=== PATIENT | male | born 1955 | race Caucasian/White ===

== ENCOUNTER 2019-02-26 04:31 | Inpatient (IN) | payer MEDICAID ==
[~2019-02-26] VITALS: Ht 177.8 cm; Wt 84.5 kg
[2019-02-26] MEDS ORDERED: APIX5TAB3 PO (05:23)
[2019-02-26 06:04] LABS: ALANINE AMINOTRANSFERASE 46 U/L (12-78); ALBUMIN 3.5 G/DL (3.4-5.0); ALBUMIN/GLOBULIN RATIO 1.2 (1.1-1.5); ALKALINE PHOSPHATASE 76 IU/L (46-116); ANION GAP 8 (8-16); ASPARTATE AMINO TRANSFERASE 33 U/L (10-37); BILIRUBIN,TOTAL 1.1 MG/DL (0.1-1.0); BLOOD UREA NITROGEN 20 MG/DL (7-18); BUN/CREATININE RATIO 15.6 (5.4-32.0); CALCIUM 8.6 MG/DL (8.5-10.1); CHLORIDE 108 MMOL/L (99-107); CREATININE 1.28 MG/DL (0.60-1.10); GLUCOSE 106 MG/DL (70-104); POTASSIUM 3.7 MMOL/L (3.5-5.1); SODIUM 139 MMOL/L (135-145); TOTAL PROTEIN 6.4 G/DL (6.4-8.2); eGFR 57 ML/MIN
[2019-02-26 06:12] LABS: MAGNESIUM 2.2 MG/DL (1.5-2.4)
[2019-02-26 06:48] LABS: BASOPHILS # (AUTO) 0.1 X10'3 (0-0.2); BASOPHILS % (AUTO) 0.8 % (0-1); EOSINOPHILS # (AUTO) 0.2 X10'3 (0-0.9); EOSINOPHILS % (AUTO) 2.1 % (0-6); HEMATOCRIT 43.7 % (42.0-52.0); LYMPHOCYTES # (AUTO) 1.5 X10'3 (1.1-4.8); LYMPHOCYTES % (AUTO) 15.1 % (21-51); MEAN CORPUSCULAR HGB CONC 34.3 g/dL (33.0-36.5); MEAN CORPUSCULAR VOLUME 90.4 FL (78-98); MEAN PLATELET VOLUME 8.9 FL (7.4-10.4); MONOCYTES # (AUTO) 0.7 X10'3 (0-0.9); NEUTROPHILS # (AUTO) 7.3 X10'3 (1.8-7.7); PLATELET COUNT 315 X10'3 (140-440); RED BLOOD COUNT 4.83 X10'6 (4.70-6.10); RED CELL DISTRIBUTION WIDTH 14.6 % (11.5-14.5); WHITE BLOOD COUNT 9.8 X10'3 (4.5-11.0)
[2019-02-26] MEDS ORDERED: potassium CL 10mEq/100ml bag 100 ML IV PRN (08:10)
[2019-02-26] MEDS ORDERED: sodium chloride 0.45% 1,000 ML IV SCH (08:10)
[2019-02-26] MEDS ORDERED: acetaminophen 325mg tablet PO PRN (08:10)
[2019-02-26] MEDS ORDERED: magnesium 4gm in 100ml NS 100 ML IV PRN (08:10)
[2019-02-26] MEDS ORDERED: mag hydrox/Alum hydrox/simeth 30ml oral suspension PO PRN (08:10)
[2019-02-26] MEDS ORDERED: magnesium Cl slow-release 64mg tablet PO PRN (08:10)
[2019-02-26] MEDS ORDERED: magnesium 2GM in 50ml NS 50 ML IV PRN (08:10)
[2019-02-26] MEDS ORDERED: bisacodyl 10mg suppository rectal RC PRN (08:10)
[2019-02-26] MEDS ORDERED: potassium Cl 40MEQ/NS 500ml 500 ML IV PRN (08:10)
[2019-02-26] MEDS ORDERED: potassium Cl 20 mEq SR tablet PO PRN ×2 (08:10)
[2019-02-26] MEDS ORDERED: morphine 2 MG/ML inj. syringe IV PRN ×2 (08:10)
[2019-02-26] MEDS ORDERED: ondansetron/PF 4mg/2ml inj IV PRN (08:10)
[2019-02-26] MEDS ORDERED: magnesium hydroxide 30ml (MOM) UD suspension PO PRN (08:10)
[2019-02-26] MEDS ORDERED: nitroGLYCERIN 0.4mg SUBLingual tab SL PRN (08:20)
[2019-02-26] MEDS: metoprolol tartrate 12.5mg (1/2 tablet) PO SCH ×2 (08:20→20:30)
[2019-02-26] MEDS ORDERED: Potassium Cl inj 20 MEQ in normal saline 1000ml 990 ML IV SCH (08:20)
[2019-02-26] MEDS: aspirin 81mg tablet.DR PO SCH (08:42)
[2019-02-26] MEDS: potassium Cl 20mEq in NS 1,000 ML IV SCH ×2 (08:52→21:33)
[2019-02-26] MEDS: enoxaparin 80mg/0.8ml syringe SUBCUT SCH ×2 (12:27→20:32)
--- NOTE | 2019-02-26 15:04 | NUR ---
REPORT ATTEMPTED, JOAQUÍN/NURSE IN PROCEDURE WILL RETURN CALL
--- NOTE | 2019-02-26 15:28 | NUR ---
I have received report from Katrin Bernstein RN and had the opportunity to ask questions and assume patient care.
--- NOTE | 2019-02-26 16:00 | NUR ---
Patient arrived to the unit, placed on tele monitoring, vital signs obtained, 2 RN skin check complete, belongings placed at the bedside. Will continue to monitor.
--- NOTE | 2019-02-26 18:30 | NUR ---
Patient in room PCU 3023b. I have received report from ANNEMARIE Fischer and had the opportunity to ask questions and assume patient care. Patient awake for bedside report. Was on telephone and stable at this time. 20 G left AC with 20 mEq K infusing at 80 mL/hr per provider order. Will continue to monitor closely.
--- NOTE | 2019-02-26 18:32 | NUR ---
Problems reprioritized. Patient report given, questions answered & plan of care reviewed with Freeman SHARPE.
[2019-02-26 19:00] VITALS: BP 113/72
[2019-02-26] MEDS: docusate sod 100mg capsule PO SCH (20:31)
[2019-02-26 23:00] VITALS: BP 100/68
[2019-02-27] VITALS (10 sets, daily range): BP systolic 105–123; BP diastolic 74–86
--- NOTE | 2019-02-27 06:27 | NUR ---
Problems reprioritized. Patient report given, questions answered & plan of care reviewed with ANNEMARIE PELAEZ AND ANNEMARIE CHAVEZ.
[2019-02-27 06:43] LABS: ALANINE AMINOTRANSFERASE 29 U/L (12-78); ALBUMIN 3.2 G/DL (3.4-5.0); ALBUMIN/GLOBULIN RATIO 1.1 (1.1-1.5); ALKALINE PHOSPHATASE 73 IU/L (46-116); ANION GAP 5 (8-16); ASPARTATE AMINO TRANSFERASE 19 U/L (10-37); BILIRUBIN,TOTAL 0.5 MG/DL (0.1-1.0); BLOOD UREA NITROGEN 13 MG/DL (7-18); BUN/CREATININE RATIO 13.7 (5.4-32.0); CALCIUM 8.4 MG/DL (8.5-10.1); CHLORIDE 111 MMOL/L (99-107); CHOL/HDL RATIO 3.9 (0.00-4.99); CHOLESTEROL 167 MG/DL (0-200); CREATININE 0.95 MG/DL (0.60-1.10); GLUCOSE 97 MG/DL (70-104); HDL CHOLESTEROL 43 MG/DL (35-60); LDL CHOLESTEROL 111 MG/DL (50-100); MAGNESIUM 2.2 MG/DL (1.5-2.4); POTASSIUM 3.8 MMOL/L (3.5-5.1); SODIUM 140 MMOL/L (135-145); TOTAL CARBON DIOXIDE 23.6 MMOL/L (24-32); TOTAL PROTEIN 6.1 G/DL (6.4-8.2); TRIGLYCERIDES 66 MG/DL (20-135); eGFR 80 ML/MIN
[2019-02-27 06:45] LABS: BASOPHILS # (AUTO) 0.1 X10'3 (0-0.2); BASOPHILS % (AUTO) 1.7 % (0-1); EOSINOPHILS # (AUTO) 0.3 X10'3 (0-0.9); EOSINOPHILS % (AUTO) 4.2 % (0-6); HEMATOCRIT 42.5 % (42.0-52.0); HEMOGLOBIN 14.7 g/dl (14.0-17.9); LYMPHOCYTES # (AUTO) 1.4 X10'3 (1.1-4.8); MEAN CORPUSCULAR HEMOGLOBIN 31.3 PG (27.0-31.0); MEAN CORPUSCULAR HGB CONC 34.5 g/dL (33.0-36.5); MEAN CORPUSCULAR VOLUME 90.9 FL (78-98); MEAN PLATELET VOLUME 8.7 FL (7.4-10.4); MONOCYTES # (AUTO) 0.5 X10'3 (0-0.9); MONOCYTES % (AUTO) 8.8 % (2-12); NEUTROPHILS % (AUTO) 63.3 % (42-75); PLATELET COUNT 270 X10'3 (140-440); RED BLOOD COUNT 4.67 X10'6 (4.70-6.10); RED CELL DISTRIBUTION WIDTH 15.1 % (11.5-14.5); WHITE BLOOD COUNT 6.2 X10'3 (4.5-11.0)
--- NOTE | 2019-02-27 06:59 | NUR ---
Patient in room PCU 3023. I have received report from Freeman SHARPE and had the opportunity to ask questions and assume patient care.
[2019-02-27] MEDS: metoprolol tartrate 12.5mg (1/2 tablet) PO SCH (07:01)
[2019-02-27] MEDS: enoxaparin 80mg/0.8ml syringe SUBCUT SCH (07:02)
[2019-02-27] MEDS ORDERED: K and/or MAG REPLACEMENT MC SCH (08:00)
[2019-02-27] MEDS: aspirin 81mg tablet.DR PO SCH (08:02)
[2019-02-27] MEDS: docusate sod 100mg capsule PO SCH (08:02)
[2019-02-27] MEDS ORDERED: nitroGLYCERIN 0.4mg SUBLingual tab SL PRN (09:15)
[2019-02-27] MEDS ORDERED: metoprolol tartrate 1mg/ml inj IV PRN (09:15)
[2019-02-27] MEDS ORDERED: regadenoson 0.4mg/5ml syringe IV PRN (09:15)
[2019-02-27] MEDS ORDERED: aminophylline 250mg/10ml inj. IV PRN (09:15)
[2019-02-27] MEDS: potassium Cl 20mEq in NS 1,000 ML IV SCH (10:50)
[2019-02-27] MEDS ORDERED: regadenoson 0.4mg/5ml syringe IV ONE (13:07)
[2019-02-27] MEDS ORDERED: aminophylline inj. 10 ML IV ONE (13:07)
--- NOTE | 2019-02-27 14:47 | NUR ---
Sent page to Dr. Good: PAGER ID: [phone] MESSAGE: [id number] Jose Roberto Mendoza: Karma results are up. Thanks, Aaliyah [phone]
[2019-02-27] MEDS ORDERED: NITR0.4T51 SL (15:20)
[2019-02-27] MEDS ORDERED: ASPI-1071 PO (15:20)
[2019-02-27] MEDS ORDERED: METO25TA6 PO (15:20)
[2019-02-27] MEDS ORDERED: ATOR20TA66 PO (15:24)
--- NOTE | 2019-02-27 16:34 | NUR ---
Patient discharge instructions given. All questions answered. Tele box removed. IV removed cannula intact. All patients belongings were gathered and taken with patient. Patient was accompanied by family to private vehicle.
--- NOTE | 2019-02-27 18:10 | NUR ---
[place] documentation: I have reviewed and agree with all interventions, assessments performed and documented by Penny SHARPE. [place] Medication Administration: For this medication-pass time frame, all medication were reviewed, dispensed, administered and documented per hospital policy by Penny SHARPE.
== END 2019-02-27 16:47 | disposition home or self-care (01) | DRG 190 ==
LOC: ER 04:31 → PCU 3S 14:57 → EDBEDREQ 15:03
PROVIDERS: ADMIT Internal Medicine; ATTEND Internal Medicine
PROC: 4A02XM4 Measurement of Cardiac Total Activity, External Approach (ICD-10-PCS; principal; 2019-02-27)
PROC: 3E033HZ Introduction of Radioactive Substance into Peripheral Vein, Percutaneous Approach (ICD-10-PCS; 2019-02-27)
DX: I21.A1 Myocardial infarction type 2 (principal); I48.0 Paroxysmal atrial fibrillation; Z79.82 Long term (current) use of aspirin; Z86.718 Personal history of other venous thrombosis and embolism; Z87.891 Personal history of nicotine dependence; Z88.8 Allergy status to other drugs, medicaments and biological substances; Z79.01 Long term (current) use of anticoagulants
CPT/HCPCS: 36415; 71045; 78452; 80053; 80061; 83735; 83880; 84484; 85025; 85730; 87070; 93005; 93017; 93306; 99285; A9500; G0378; J0280; J1650; J3480; J7030

== ENCOUNTER 2019-12-27 11:24 | Day surgery (SDC) | payer MEDICAID ==
[~2019-12-27] VITALS: Ht 188 cm; Wt 76.7 kg
[2019-12-27] VITALS (13 sets, daily range): BP systolic 103–119; BP diastolic 65–78
[~2019-12-27 11:24] MED LIST: APIX5TAB3 PO; ASPI-1071 PO; ATOR20TA66 PO; METO25TA6 PO; NITR0.4T51 SL
[2019-12-27] MEDS ORDERED: METO25TA6 PO (11:44)
[2019-12-27] MEDS ORDERED: NITR0.4T51 SL (11:44)
[2019-12-27] MEDS ORDERED: nitroGLYCERIN 0.4mg SUBLingual tab SL PRN (11:50)
[2019-12-27] MEDS ORDERED: LORazepam 0.5 MG tablet PO PRN (11:50)
[2019-12-27] MEDS ORDERED: diphenhydrAMINE 25mg capsule PO PRN (11:50)
[2019-12-27] MEDS ORDERED: normal saline 1,000 ML IV SCH (11:50)
[2019-12-27 12:17] LABS: BASOPHILS # (AUTO) 0.1 X10'3 (0-0.2); BASOPHILS % (AUTO) 0.9 % (0-1); EOSINOPHILS # (AUTO) 0.1 X10'3 (0-0.9); EOSINOPHILS % (AUTO) 1.1 % (0-6); HEMATOCRIT 46.3 % (42.0-52.0); HEMOGLOBIN 15.5 g/dl (14.0-17.9); LYMPHOCYTES # (AUTO) 1.1 X10'3 (1.1-4.8); MEAN CORPUSCULAR HEMOGLOBIN 30.8 PG (27.0-31.0); MEAN CORPUSCULAR HGB CONC 33.4 g/dL (33.0-36.5); MEAN CORPUSCULAR VOLUME 92.3 FL (78-98); MEAN PLATELET VOLUME 8.7 FL (7.4-10.4); MONOCYTES # (AUTO) 0.6 X10'3 (0-0.9); MONOCYTES % (AUTO) 7.2 % (2-12); NEUTROPHILS # (AUTO) 6.3 X10'3 (1.8-7.7); NEUTROPHILS % (AUTO) 77.8 % (42-75); PLATELET COUNT 308 X10'3 (140-440); RED BLOOD COUNT 5.01 X10'6 (4.70-6.10); RED CELL DISTRIBUTION WIDTH 15.1 % (11.5-14.5); WHITE BLOOD COUNT 8.1 X10'3 (4.5-11.0)
[2019-12-27 12:26] LABS: ALBUMIN 3.8 G/DL (3.4-5.0); ANION GAP 9 (8-16); BLOOD UREA NITROGEN 23 MG/DL (7-18); BUN/CREATININE RATIO 23.5 (5.4-32.0); CALCIUM 9.7 MG/DL (8.5-10.1); CHLORIDE 106 MMOL/L (99-107); CREATININE 0.98 MG/DL (0.60-1.10); GLUCOSE 104 MG/DL (70-104); SODIUM 139 MMOL/L (135-145); TOTAL CARBON DIOXIDE 24.2 MMOL/L (24-32); eGFR 77 ML/MIN
[2019-12-27 12:28] LABS: POTASSIUM 4.4 MMOL/L (3.5-5.1)
[2019-12-27 12:30] LABS: PARTIAL THROMBOPLASTIN TIME 26 SECONDS (22-32)
[2019-12-27] MEDS ORDERED: iohexol 350 MG/ML 50ML vial IV ONE (13:45)
[2019-12-27] MEDS ORDERED: fentaNYL/PF 50MCG/1 ML 2ML syringe ONE (13:45)
[2019-12-27] MEDS ORDERED: iohexol 350MG/ML 100ml bottle IV ONE (13:45)
[2019-12-27] MEDS ORDERED: LIDOcaine 1% (10mg/ml)w/preservative injection 20ml MDV ONE (13:45)
[2019-12-27] MEDS ORDERED: midazolam 2 mg/2 ml injection ONE (13:45)
[2019-12-27] MEDS ORDERED: ondansetron/PF 4mg/2ml inj IV PRN (15:30)
[2019-12-27] MEDS ORDERED: HYDROcodone/acetaminophen 5mg/325mg tablet PO PRN (15:30)
[2019-12-27] MEDS ORDERED: OXAZEpam 15mg capsule PO PRN (15:30)
[2019-12-27] MEDS ORDERED: HYDROcodone/acetaminophen 10/325mg tab PO PRN (15:30)
[2019-12-27] MEDS ORDERED: proCHLORperazine 10 MG/2 ml inj IV PRN (15:30)
== END 2019-12-27 20:05 | disposition home or self-care (01) ==
LOC: U 11:24 → MED 3N 11:24 → U 20:05
PROVIDERS: ATTEND Internal Medicine Cardiovascular Disease
DX: R94.39 Abnormal result of other cardiovascular function study (principal); Z98.890 Other specified postprocedural states; Z86.718 Personal history of other venous thrombosis and embolism; Z87.891 Personal history of nicotine dependence; Z79.01 Long term (current) use of anticoagulants; Z86.711 Personal history of pulmonary embolism
CPT/HCPCS: 36415; 71046; 80048; 85025; 85610; 85730; 93458; 99152; C1769; J1644; J2001; J2250; J3010; J7030; Q0163; Q9967; 93005; A4620; A6258; C1760

== ENCOUNTER 2020-02-02 05:18 | Inpatient (IN) | payer MEDICAID ==
[2020-01-25 11:11] LABS: BASOPHILS # (AUTO) 0.1 X10'3 (0-0.2); BASOPHILS % (AUTO) 0.8 % (0-1); EOSINOPHILS # (AUTO) 0.1 X10'3 (0-0.9); EOSINOPHILS % (AUTO) 1.1 % (0-6); LYMPHOCYTES % (AUTO) 12.5 % (21-51); MEAN CORPUSCULAR HEMOGLOBIN 31.1 PG (27.0-31.0); MEAN CORPUSCULAR HGB CONC 33.3 g/dL (33.0-36.5); MEAN CORPUSCULAR VOLUME 93.3 FL (78-98); MEAN PLATELET VOLUME 8.3 FL (7.4-10.4); MONOCYTES # (AUTO) 0.5 X10'3 (0-0.9); MONOCYTES % (AUTO) 6.5 % (2-12); NEUTROPHILS # (AUTO) 6.5 X10'3 (1.8-7.7); NEUTROPHILS % (AUTO) 79.1 % (42-75); PRE OP HEMOGLOBIN 16.3 g/dL (14.0-17.9); PRE OP PLATELET COUNT 321 X10'3 (140-440); RED BLOOD COUNT 5.25 X10'6 (4.70-6.10); RED CELL DISTRIBUTION WIDTH 14.8 % (11.5-14.5)
[2020-01-25 11:24] LABS: ALBUMIN/GLOBULIN RATIO 1.2 (1.1-1.5); ALKALINE PHOSPHATASE 103 IU/L (46-116); BLOOD UREA NITROGEN 18 MG/DL (7-18); CALCIUM 9.8 MG/DL (8.5-10.1); CHLORIDE 106 MMOL/L (99-107); CREATININE 1.06 MG/DL (0.60-1.10); PRE OP ALT 45 U/L (30-65); PRE OP ANION GAP 6 (8-16); PRE OP AST 25 U/L (10-37); PRE OP BILIRUB, TOTAL 0.6 MG/DL (0.0-1.0); PRE OP GLUCOSE 103 MG/DL (70-104); PRE OP POTASSIUM 4.2 MMOL/L (3.4-5.1); PRE OP PROTIME 10.3 SECONDS (9.0-12.0); PRE OP SODIUM 141 MMOL/L (135-145); TOTAL CARBON DIOXIDE 28.9 MMOL/L (24-32); TOTAL PROTEIN 7.3 G/DL (6.4-8.2); eGFR 71 ML/MIN
[~2020-02-02] VITALS: Ht 177.8 cm; Wt 77.1 kg
[2020-02-02] VITALS (26 sets, daily range): BP systolic 108–160; BP diastolic 57–100
[~2020-02-02 05:18] MED LIST changes: -ASPI-1071 PO; -ATOR20TA66 PO; +METO-395 PO; -METO25TA6 PO; +ringers solution, lacted 1,000 ML IV SCH
[2020-02-02] MEDS ORDERED: ceFAZolin 2gm in dextrose, iso 50 ML IV ONE (05:30)
[2020-02-02] MEDS ORDERED: DOCUMENT DATE & TIME OF BETA-BLOCKER PO ONE (05:30)
[2020-02-02] MEDS ORDERED: famotidine 20mg tablet PO ONE (05:30)
[2020-02-02] MEDS ORDERED: sevoflurane 250ml liquid IH ONE (07:25)
[2020-02-02] MEDS ORDERED: rocuronium 10mg/ml inj IV ONE ×2 (07:25→07:29)
[2020-02-02] MEDS ORDERED: midazolam 2 mg/2 ml injection ONE (07:26)
[2020-02-02] MEDS ORDERED: fentaNYL /PF 50mcg/ml 5ml ampule ONE (07:27)
[2020-02-02] MEDS ORDERED: propofol inj 20 ML IV ONE (07:29)
[2020-02-02] MEDS ORDERED: glycopyrrolate 0.2mg/ml inj ONE (07:29)
[2020-02-02] MEDS ORDERED: neostigmine methylsulfate 1 MG/ML 10ml vial ONE (07:29)
[2020-02-02] MEDS ORDERED: LIDOcaine 2% (20mg/ml) 5ml vial ONE (07:29)
[2020-02-02] MEDS ORDERED: dexamethasone sod phosphate 4mg/ml inj. ONE (07:29)
[2020-02-02] MEDS ORDERED: ondansetron/PF 4mg/2ml inj ONE (07:29)
[2020-02-02] MEDS ORDERED: ringers solution, lacted 1,000 ML IV SCH (08:58)
[2020-02-02] MEDS ORDERED: ondansetron/PF 4mg/2ml inj IV PRN (09:00)
[2020-02-02] MEDS ORDERED: proCHLORperazine 10 MG/2 ml inj IV PRN (09:00)
[2020-02-02] MEDS ORDERED: meperidine/PF 25mg/ml syringe IV PRN ×2 (09:00)
[2020-02-02] MEDS ORDERED: morphine 2 MG/ML inj. syringe IV PRN (09:00)
[2020-02-02] MEDS ORDERED: meperidine/PF 25mg/ml syringe ONE (10:23)
--- NOTE | 2020-02-02 10:48 | NUR ---
Received from OR via surgical bed, accompanied by Anesthesiologist Jose Carlos and report given by Anesthesiolgist. O2 mask placed to 10L sats 97%, all other VS stable, patient moving around a lot, pain meds given. 18G left forearm intact IVF LR at 100cc/hr, clarified rate with MD as one kideny removed, MD states okay. Dentures at bedside. Mckenna cath with 1000cc clear yellow urine. Abdomen with small island dressing and lap sites with bandaids all CDI. SCDs placed on patient.
[2020-02-02] MEDS: meperidine/PF 25mg/ml syringe IV PRN ×2 (11:02→11:07)
[2020-02-02] MEDS: morphine 4 MG/ML inj SYRINge IV PRN ×3 (11:12→11:43)
[2020-02-02] MEDS ORDERED: naloxone 0.4 mg/ml inj IV PRN (11:20)
[2020-02-02] MEDS: potassium cl 20mEq in 1/2 NS 1,000 ML IV SCH ×2 (11:20→18:40)
[2020-02-02] MEDS ORDERED: CADD PCA waste documentation MC PRN (11:20)
[2020-02-02] MEDS ORDERED: morphine 4 MG/ML inj SYRINge ONE (11:40)
[2020-02-02] MEDS ORDERED: HYDROmorphone inj. 0.5 MG/0.5 ML DISP.SYRIN IV PRN ×2 (11:50→11:55)
[2020-02-02] MEDS ORDERED: HYDROmorphone 1 mg/ml syringe ONE (11:53)
[2020-02-02] MEDS: acetaminophen 1,000mg/100ml IV 100 ML IV SCH ×2 (12:17→14:48)
--- NOTE | 2020-02-02 12:20 | NUR ---
Report received from SUPERVISOR PAPER MACHINEAna.
[2020-02-02] MEDS ORDERED: nitroGLYCERIN 0.4mg SUBLingual tab SL PRN (12:25)
[2020-02-02] MEDS: HYDROmorphone/NS 1 mg/ml CADD 50 ML IV SCH ×6 (12:48→23:30)
--- NOTE | 2020-02-02 13:00 | NUR ---
Received call from radiologist earlier about the pneumo and this was relayed to anesthesia and surgeon. No changes in orders as I also relayed absolutely no respiratory symptoms have transpired. Also earlier I spoke with Dr Branch and Dr Cruz about significant pain after maxing out all recovery room orders (see eMAR) and I received further orders for dilaudid pushes and 1gm tylenol. Pt did finally start to have relief in pain and this continued as dilaudid cadd was hung. MDs both aware of patient status and Dr Cruz states keep NPO until further notice.
--- NOTE | 2020-02-02 13:18 | NUR ---
Report called to receiving nurse. Transferred via surgical bed. Belongings sent with patient. Special Issues communicated to receiving nurse Christie RN and charge nurse. Dressing changed at bedside with charge nurse present and all info relayed regarding pain, and small pneumothorax. Pt VS stable, chart at bedside and dentures sent with patient. Dr Cruz stated please keep patient NPO until after he checks on him later today, pt understands and staff aware.
--- NOTE | 2020-02-02 18:40 | NUR ---
Problems reprioritized. Patient report given, questions answered & plan of care reviewed with ANNEMARIE Maldonado & Darling RN.
--- NOTE | 2020-02-02 18:43 | NUR ---
Patient in room ED[facility] 358. I have received report from Christie SHARPE and had the opportunity to ask questions and assume patient care.
[2020-02-03] MEDS: HYDROmorphone/NS 1 mg/ml CADD 50 ML IV SCH ×12 (01:00→22:36)
[2020-02-03] MEDS: potassium cl 20mEq in 1/2 NS 1,000 ML IV SCH ×3 (02:32→18:54)
[2020-02-03 05:06] LABS: BASOPHILS % (AUTO) 0.3 % (0-1); EOSINOPHILS % (AUTO) 0.2 % (0-6); HEMATOCRIT 43.2 % (42.0-52.0); HEMOGLOBIN 14.3 g/dl (14.0-17.9); LYMPHOCYTES # (AUTO) 0.8 X10'3 (1.1-4.8); LYMPHOCYTES % (AUTO) 6.1 % (21-51); MEAN CORPUSCULAR HEMOGLOBIN 30.7 PG (27.0-31.0); MEAN CORPUSCULAR VOLUME 92.8 FL (78-98); MEAN PLATELET VOLUME 8.3 FL (7.4-10.4); MONOCYTES # (AUTO) 1.1 X10'3 (0-0.9); MONOCYTES % (AUTO) 8.5 % (2-12); NEUTROPHILS # (AUTO) 10.7 X10'3 (1.8-7.7); NEUTROPHILS % (AUTO) 84.9 % (42-75); PLATELET COUNT 232 X10'3 (140-440); RED BLOOD COUNT 4.66 X10'6 (4.70-6.10); RED CELL DISTRIBUTION WIDTH 14.7 % (11.5-14.5); WHITE BLOOD COUNT 12.7 X10'3 (4.5-11.0)
[2020-02-03 05:18] LABS: ALBUMIN 3.3 G/DL (3.4-5.0); ANION GAP 8 (8-16); BLOOD UREA NITROGEN 16 MG/DL (7-18); BUN/CREATININE RATIO 10.2 (5.4-32.0); CALCIUM 8.4 MG/DL (8.5-10.1); CHLORIDE 105 MMOL/L (99-107); CREATININE 1.57 MG/DL (0.60-1.10); GLUCOSE 120 MG/DL (70-104); POTASSIUM 3.7 MMOL/L (3.5-5.1); SODIUM 137 MMOL/L (135-145); TOTAL CARBON DIOXIDE 24.1 MMOL/L (24-32); eGFR 45 ML/MIN
--- NOTE | 2020-02-03 06:30 | NUR ---
Problems reprioritized. Patient report given, questions answered & plan of care reviewed with Nicole SHARPE.
--- NOTE | 2020-02-03 06:38 | NUR ---
Patient in room [facility] 358. I have received report from Erica Gunter and had the opportunity to ask questions and assume patient care.
[2020-02-03 07:00] VITALS: BP 130/84
[2020-02-03] MEDS: metoprolol succinate 25mg (24-HOUR) SR. Tablet PO SCH (07:49)
[2020-02-03 11:00] VITALS: BP 123/78
--- NOTE | 2020-02-03 18:28 | NUR ---
Patient in room EDWIN 358. I have received report from ANNEMARIE Rivera and had the opportunity to ask questions and assume patient care. pt resting in room cl liq at bedside pain 12/21 tolerable. Addendum: 02/03/20 at 1829 by Marguerite Duque RN Amended: Links added.
--- NOTE | 2020-02-03 18:34 | NUR ---
Problems reprioritized. Patient report given, questions answered & plan of care reviewed with Kinsey Gunter.
[2020-02-03 23:30] VITALS: BP 137/87
--- NOTE | 2020-02-03 23:30 | NUR ---
Pt moved to room 354c. amb ad princess miriam galaviz. Addendum: 02/04/20 at 0042 by Marguerite Duque RN Amended: Links added.
[2020-02-04] MEDS: HYDROmorphone/NS 1 mg/ml CADD 50 ML IV SCH ×7 (01:00→13:00)
[2020-02-04] MEDS: potassium cl 20mEq in 1/2 NS 1,000 ML IV SCH ×3 (02:34→19:20)
--- NOTE | 2020-02-04 06:21 | NUR ---
Patient in room [facility] 354. I have received report from Kinsey SHARPE and had the opportunity to ask questions and assume patient care.
--- NOTE | 2020-02-04 06:22 | NUR ---
Problems reprioritized. Patient report given, questions answered & plan of care reviewed with ANNEMARIE Holden. Addendum: 02/04/20 at 0622 by Marguerite Duque RN Amended: Links added.
[2020-02-04 07:18] LABS: BASOPHILS % (AUTO) 0.3 % (0-1); EOSINOPHILS % (AUTO) 0.3 % (0-6); HEMATOCRIT 45.7 % (42.0-52.0); HEMOGLOBIN 15.3 g/dl (14.0-17.9); LYMPHOCYTES # (AUTO) 0.9 X10'3 (1.1-4.8); LYMPHOCYTES % (AUTO) 7.4 % (21-51); MEAN CORPUSCULAR HEMOGLOBIN 30.9 PG (27.0-31.0); MEAN CORPUSCULAR HGB CONC 33.4 g/dL (33.0-36.5); MEAN CORPUSCULAR VOLUME 92.5 FL (78-98); MEAN PLATELET VOLUME 8.6 FL (7.4-10.4); NEUTROPHILS # (AUTO) 10.1 X10'3 (1.8-7.7); PLATELET COUNT 236 X10'3 (140-440); RED BLOOD COUNT 4.94 X10'6 (4.70-6.10); RED CELL DISTRIBUTION WIDTH 14.4 % (11.5-14.5)
[2020-02-04 07:26] LABS: ALBUMIN 3.4 G/DL (3.4-5.0); ANION GAP 8 (8-16); BLOOD UREA NITROGEN 13 MG/DL (7-18); BUN/CREATININE RATIO 8.8 (5.4-32.0); CALCIUM 9.2 MG/DL (8.5-10.1); CHLORIDE 102 MMOL/L (99-107); CREATININE 1.47 MG/DL (0.60-1.10); GLUCOSE 115 MG/DL (70-104); SODIUM 133 MMOL/L (135-145); TOTAL CARBON DIOXIDE 23.3 MMOL/L (24-32); eGFR 48 ML/MIN
[2020-02-04 07:44] VITALS: BP 157/93
[2020-02-04] MEDS: metoprolol succinate 25mg (24-HOUR) SR. Tablet PO SCH (07:58)
[2020-02-04] MEDS: docusate sod 250mg capsule PO SCH (07:58)
[2020-02-04] MEDS: ondansetron/PF 4mg/2ml inj IV PRN (08:45)
[2020-02-04] MEDS: HYDROcodone/acetaminophen 5mg/325mg tablet PO PRN (10:44)
[2020-02-04 11:55] VITALS: BP 140/94
--- NOTE | 2020-02-04 17:50 | NUR ---
Student documentation: I have reviewed all interventions, assessments performed and documented by Olivia sexton [facility]. Student Medication Administration: For this medication-pass time frame, all medication were reviewed, dispensed, administered and documented per hospital policy by Olivia CALDERON for [facility].
--- NOTE | 2020-02-04 18:09 | NUR ---
Problems reprioritized. Patient report given, questions answered & plan of care reviewed with Dyan SHARPE.
--- NOTE | 2020-02-04 18:30 | NUR ---
Patient in room EDWIN 354. I have received report from Adina SHARPE and had the opportunity to ask questions and assume patient care.
[2020-02-04 20:00] VITALS: BP 126/80
[2020-02-05] VITALS: BP 130/89
[2020-02-05] MEDS: ondansetron/PF 4mg/2ml inj IV PRN ×3 (00:42→19:27)
[2020-02-05] MEDS: potassium cl 20mEq in 1/2 NS 1,000 ML IV SCH ×3 (02:50→19:23)
--- NOTE | 2020-02-05 03:18 | NUR ---
Called MD for n/v medication to stagger with markus q6 as pt. will not take pain medicine as scared of having emesis.
[2020-02-05] MEDS: proCHLORperazine 10 MG/2 ml inj IV PRN ×2 (03:22→14:20)
[2020-02-05] MEDS: HYDROcodone/acetaminophen 5mg/325mg tablet PO PRN ×2 (03:27→08:31)
[2020-02-05 05:45] LABS: BASOPHILS % (AUTO) 0.1 % (0-1); EOSINOPHILS % (AUTO) 0.1 % (0-6); HEMATOCRIT 46.1 % (42.0-52.0); HEMOGLOBIN 15.4 g/dl (14.0-17.9); LYMPHOCYTES # (AUTO) 0.5 X10'3 (1.1-4.8); LYMPHOCYTES % (AUTO) 4.1 % (21-51); MEAN CORPUSCULAR HEMOGLOBIN 30.8 PG (27.0-31.0); MEAN CORPUSCULAR HGB CONC 33.5 g/dL (33.0-36.5); MEAN CORPUSCULAR VOLUME 91.9 FL (78-98); MEAN PLATELET VOLUME 8.7 FL (7.4-10.4); MONOCYTES % (AUTO) 7.5 % (2-12); NEUTROPHILS # (AUTO) 11.9 X10'3 (1.8-7.7); NEUTROPHILS % (AUTO) 88.2 % (42-75); PLATELET COUNT 253 X10'3 (140-440); RED BLOOD COUNT 5.01 X10'6 (4.70-6.10); RED CELL DISTRIBUTION WIDTH 14.3 % (11.5-14.5); WHITE BLOOD COUNT 13.5 X10'3 (4.5-11.0)
[2020-02-05 05:52] LABS: ALBUMIN 3.3 G/DL (3.4-5.0); ANION GAP 10 (8-16); BLOOD UREA NITROGEN 17 MG/DL (7-18); BUN/CREATININE RATIO 12.7 (5.4-32.0); CALCIUM 9.5 MG/DL (8.5-10.1); CHLORIDE 100 MMOL/L (99-107); CREATININE 1.34 MG/DL (0.60-1.10); GLUCOSE 130 MG/DL (70-104); POTASSIUM 3.9 MMOL/L (3.5-5.1); SODIUM 132 MMOL/L (135-145); TOTAL CARBON DIOXIDE 21.6 MMOL/L (24-32); eGFR 54 ML/MIN
--- NOTE | 2020-02-05 06:05 | NUR ---
Problems reprioritized. Patient report given, questions answered & plan of care reviewed with Reinaldo SHARPE.
--- NOTE | 2020-02-05 06:17 | NUR ---
Patient in room [facility]WIN 354. I have received report from ANNEMARIE MARKS and had the opportunity to ask questions and assume patient care.
[2020-02-05] MEDS: docusate sod 250mg capsule PO SCH (08:29)
[2020-02-05] MEDS: metoprolol succinate 25mg (24-HOUR) SR. Tablet PO SCH (08:29)
[2020-02-05 08:41] VITALS: BP 136/91
[2020-02-05 12:53] VITALS: BP 123/84
[2020-02-05 14:25] LABS: BASOPHILS % (AUTO) 0.3 % (0-1); EOSINOPHILS # (AUTO) 0.1 X10'3 (0-0.9); HEMATOCRIT 45.7 % (42.0-52.0); HEMOGLOBIN 15.5 g/dl (14.0-17.9); LYMPHOCYTES # (AUTO) 0.7 X10'3 (1.1-4.8); LYMPHOCYTES % (AUTO) 5.8 % (21-51); MEAN CORPUSCULAR HEMOGLOBIN 31.2 PG (27.0-31.0); MEAN CORPUSCULAR VOLUME 91.7 FL (78-98); MEAN PLATELET VOLUME 8.4 FL (7.4-10.4); MONOCYTES # (AUTO) 1.1 X10'3 (0-0.9); MONOCYTES % (AUTO) 8.8 % (2-12); NEUTROPHILS # (AUTO) 10.9 X10'3 (1.8-7.7); NEUTROPHILS % (AUTO) 84.1 % (42-75); PLATELET COUNT 259 X10'3 (140-440); RED BLOOD COUNT 4.99 X10'6 (4.70-6.10)
[2020-02-05 14:34] LABS: ALBUMIN 3.2 G/DL (3.4-5.0); ANION GAP 9 (8-16); BLOOD UREA NITROGEN 17 MG/DL (7-18); BUN/CREATININE RATIO 12.7 (5.4-32.0); CALCIUM 9.1 MG/DL (8.5-10.1); CHLORIDE 102 MMOL/L (99-107); CREATININE 1.34 MG/DL (0.60-1.10); GLUCOSE 125 MG/DL (70-104); POTASSIUM 3.8 MMOL/L (3.5-5.1); SODIUM 132 MMOL/L (135-145); TOTAL CARBON DIOXIDE 21.3 MMOL/L (24-32); eGFR 54 ML/MIN
--- NOTE | 2020-02-05 18:20 | NUR ---
Patient in room EDWIN 354. I have received report from Reinaldo SHARPE and had the opportunity to ask questions and assume patient care.
[2020-02-05 19:00] VITALS: BP 126/83
[2020-02-05 20:00] VITALS: BP 126/83
[2020-02-06] VITALS: BP 137/83
[2020-02-06] MEDS: potassium cl 20mEq in 1/2 NS 1,000 ML IV SCH ×2 (01:59→12:07)
[2020-02-06] MEDS: proCHLORperazine 10 MG/2 ml inj IV PRN (03:18)
[2020-02-06] MEDS: ondansetron/PF 4mg/2ml inj IV PRN (05:39)
--- NOTE | 2020-02-06 06:30 | NUR ---
Problems reprioritized. Patient report given, questions answered & plan of care reviewed with Reinaldo SHARPE.
--- NOTE | 2020-02-06 06:32 | NUR ---
Patient in room [facility]WIN 354. I have received report from ANNEMARIE MARKS and had the opportunity to ask questions and assume patient care.
[2020-02-06 07:00] VITALS: BP 133/80
[2020-02-06] MEDS: docusate sod 250mg capsule PO SCH (08:00)
[2020-02-06] MEDS ORDERED: metoclopramide 10mg tablet PO ONE (08:20)
[2020-02-06] MEDS: metoprolol succinate 25mg (24-HOUR) SR. Tablet PO SCH (08:36)
[2020-02-06 12:00] VITALS: BP 142/83
[2020-02-06] MEDS ORDERED: metoclopramide 10mg tablet PO PRN (12:00)
[2020-02-06] MEDS ORDERED: METO-292 PO (14:02)
--- NOTE | 2020-02-06 16:30 | NUR ---
Patient A&O. Discussed discharge instructions with patient. Patient denies any complaints. Does not appear to be in any acute distress. Patient verbalized understanding of discharge instructions and new prescriptions. Patient escorted out in wheelchair to lobby where spouse was waiting for transport home.
== END 2020-02-06 16:30 | disposition home or self-care (01) | DRG 443 ==
LOC: PAS IN 05:18 → EDSTATUS 07:30 → SUR 3N 11:18
PROVIDERS: ADMIT Urology; ATTEND Urology
PROC: 0TT14ZZ Resection of Left Kidney, Percutaneous Endoscopic Approach (ICD-10-PCS; principal; 2020-02-02 07:25)
DX: D49.512 Neoplasm of unspecified behavior of left kidney (principal); J93.9 Pneumothorax, unspecified; C61 Malignant neoplasm of prostate; S27.809A Unspecified injury of diaphragm, initial encounter; X58.XXXA Exposure to other specified factors, initial encounter; Y93.89 Activity, other specified; Y92.234 Operating room of hospital as the place of occurrence of the external cause; Y99.8 Other external cause status
CPT/HCPCS: 36415; 71045; 71046; 80048; 80053; 82948; 85025; 85610; 85730; 86885; 86900; 86901; 87081; 87635; A4215; A4618; A7000; C1758; G0378; J0131; J0780; J1100; J1170; J2001; J2175; J2250; J2270; J2405; J2704; J2710; J3010; J3480; J3490; J7030; J7120; J8597